=== PATIENT | male | born 1975 | race Two or more races ===

== ENCOUNTER 2020-08-30 22:35 | Emergency (ER) | payer SELFPAY ==
[~2020-08-30] VITALS: Ht 172.7 cm; Wt 148.8 kg
[2020-08-30] MEDS ORDERED: fentaNYL CITRATE 100 MCG/2 ML VL IV ONE (23:00)
[2020-08-30] MEDS ORDERED: KETOROLAC TROMETH 30 MG/ML 1ML VIAL IV ONE (23:00)
[2020-08-31] MEDS ORDERED: HYDROcodone-ACET 10/325MG TAB PO ONE (01:30)
[2020-08-31 02:30] VITALS: BP 143/98
== END 2020-08-31 02:31 | disposition home or self-care (01) ==
LOC: EDBD 22:35 → ER 22:42
DX: S52.572A Other intraarticular fracture of lower end of left radius, initial encounter for closed fracture (principal); E11.9 Type 2 diabetes mellitus without complications; V49.49XA Driver injured in collision with other motor vehicles in traffic accident, initial encounter; Y93.89 Activity, other specified; Y92.488 Other paved roadways as the place of occurrence of the external cause; Y99.8 Other external cause status
CPT/HCPCS: 29105; 73090; 96374; 96375; 99284; J1885; J3010